=== PATIENT | male | born 1960 ===

== ENCOUNTER 2021-12-05 10:43 | Emergency (ER) | payer SELFPAY ==
[2021-12-05 12:17] VITALS: BP 126/65
--- NOTE | 2021-12-06 09:14 | Electrocardiograph Report ---
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
== END 2021-12-06 10:53 | disposition left against medical advice (07) ==
LOC: ED 10:43
DX: R07.9 Chest pain, unspecified (principal); Z53.21 Procedure and treatment not carried out due to patient leaving prior to being seen by health care provider
CPT/HCPCS: 93005